=== PATIENT | male | born 1945 | race Caucasian/White ===

== ENCOUNTER → 2019-11-14 | Day surgery (SDC) | payer MEDICARE, BC | LOC: MSO 09:01 | DX: H25.812 Combined forms of age-related cataract, left eye (principal) | CPT/HCPCS: 00142; J0171; J2250; V2632 ==

== ENCOUNTER → 2019-12-19 | Day surgery (SDC) | payer MEDICARE, BC | LOC: MSO 07:04 | DX: H25.811 Combined forms of age-related cataract, right eye (principal); H40.9 Unspecified glaucoma; J40 Bronchitis, not specified as acute or chronic; Z79.899 Other long term (current) drug therapy; F17.210 Nicotine dependence, cigarettes, uncomplicated | CPT/HCPCS: 00142; J0171; J2250; V2632 ==